=== PATIENT | female | born 1985 | race Caucasian/White ===

== ENCOUNTER 2024-08-16 20:10 | Inpatient (IN) | payer OTHER ==
[2024-08-16 21:55] VITALS: BMI 37.2
[2024-08-16] MEDS: ELECTROLYTE-148 SOLN 1,000 ML IV SCH (22:20)
[2024-08-16] MEDS ORDERED: OXYTOCIN 30 UNITS in 0.9% NS 30 UNIT/500 ML INFUS.BAG IVPB ONE (22:28)
[2024-08-16] MEDS: OXYTOCIN 30 UNITS in 0.9% NS 30 UNIT/500 ML INFUS.BAG IVPB SCH (22:30)
[2024-08-16 22:52] LABS: BASO % 0.9 % (0-2.0); EOS % 0.3 % (0-4.5); HEMATOCRIT 44.5 % (32.4-45.2); HEMOGLOBIN 14.5 GM/dL (10.7-15.3); LYMPH % 11.1 % (8-40); MCH 29.1 pg (25.7-33.7); MCHC 32.6 g/dl (32.0-36.0); MEAN CELL VOLUME 89.5 fl (80-96); MEAN PLT VOLUME 9.9 fl (7.5-11.1); MONO % 4.6 % (3.8-10.2); NEUT % 83.1 % (42.8-82.8); PLATELET COUNT 254 10^3/uL (134-434); RBC 4.98 M/mm3 (3.60-5.2); RDW 13.2 % (11.6-15.6); WHITE BLOOD COUNT 13.6 K/mm3 (4.0-10.0)
[2024-08-16 22:57] LABS: INR 0.88 (0.83-1.09); PROTHROMBIN TIME (PATIENT) 10.2 SEC (9.7-13.0)
[2024-08-16 23:00] LABS: ACTIVATED PTT 27.1 SECONDS (25.2-36.5)
[2024-08-16 23:09] LABS: POTASSIUM 3.7 mmol/L (3.5-5.1)
[2024-08-16 23:11] LABS: BLOOD UREA NITROGEN 6.2 mg/dL (7-18); CALCIUM 8.5 mg/dL (8.5-10.1)
[2024-08-16 23:15] LABS: CREATININE 0.6 mg/dL (0.55-1.3)
[2024-08-17 00:07] LABS: HIV INTERPRETATION NEGATIVE (NEGATIVE)
[2024-08-17] MEDS ORDERED: BUTORPHANOL TARTRATE 1 MG/ML VIAL ONE ×2 (01:22→03:20)
[2024-08-17] MEDS: BUTORPHANOL TARTRATE 1 MG/ML VIAL IVPB ONE ×2 (01:23→03:30)
[2024-08-17] MEDS: PROMETHAZINE HCL 25 MG/1 ML VIAL IVPB ONE ×2 (01:23→03:30)
[2024-08-17] MEDS ORDERED: PROMETHAZINE HCL 25 MG/1 ML VIAL ONE ×2 (01:23→03:20)
[2024-08-17] MEDS ORDERED: OXYTOCIN 20 UNITS in 0.9% NS 20 UNIT/1,000 ML INFUS.BAG IV ONE (05:23)
[2024-08-17] MEDS: OXYTOCIN 20 UNITS in 0.9% NS 20 UNIT/1,000 ML INFUS.BAG IV SCH (05:45)
[2024-08-17] MEDS ORDERED: IBUPROFEN 600 MG TABLET (FP) PO ONE (06:15)
[2024-08-17] MEDS: IBUPROFEN 600 MG TABLET (FP) PO PRN (06:20)
[2024-08-17] MEDS ORDERED: METHYLERGONOVINE MALEATE 0.2 MG/1 ML AMP IM PRN (06:35)
[2024-08-17] MEDS ORDERED: BISACODYL 10 MG SUPP.RECT RC PRN (06:35)
[2024-08-17] MEDS ORDERED: oxyCODONE HCL 5 MG TABLET PO PRN (06:35)
[2024-08-17] MEDS ORDERED: ACETAMINOPHEN 325 MG TABLET (FP) PO PRN (06:35)
[2024-08-17 07:26] VITALS: RESP 18
[2024-08-17] MEDS: WITCH HAZEL 50% (TUCKS) 40 PAD/JAR PAD TP PRN (09:46)
[2024-08-17] MEDS: BENZOCAINE 20% 57 GM BOTTLE TP PRN (09:47)
[2024-08-17] MEDS: BENZOCAINE 28 GM HEMORRHOIDAL OINTMENT TP PRN (09:47)
[2024-08-18 08:19] LABS: BASO % 0.4 % (0-2.0); EOS % 0.9 % (0-4.5); HEMATOCRIT 36.6 % (32.4-45.2); HEMOGLOBIN 12.2 GM/dL (10.7-15.3); LYMPH % 17.5 % (8-40); MCHC 33.3 g/dl (32.0-36.0); MEAN CELL VOLUME 90.1 fl (80-96); MEAN PLT VOLUME 9.3 fl (7.5-11.1); NEUT % 76.2 % (42.8-82.8); PLATELET COUNT 198 10^3/uL (134-434); RBC 4.06 M/mm3 (3.60-5.2); RDW 13.5 % (11.6-15.6); WHITE BLOOD COUNT 14.1 K/mm3 (4.0-10.0)
[2024-08-18 10:24] VITALS: TEMP 98
[2024-08-18 21:49] VITALS: BP 117/69; PULSE 90
[2024-08-18] MEDS ORDERED: SENNOSIDES/DOCUSATE COMBO (SENNA PLUS) TABLET (UD) PO PRN (22:00)
== END 2024-08-19 13:18 | disposition home or self-care (01) | DRG 560 ==
LOC: JDEL 20:10 → JLDR 21:25 → J3W 08-17 08:50
PROVIDERS: ADMIT Specialist; ATTEND Specialist
PROC: 10E0XZZ Delivery of Products of Conception, External Approach (ICD-10-PCS; principal; 2024-08-17)
PROC: 0HQ9XZZ Repair Perineum Skin, External Approach (ICD-10-PCS; 2024-08-17)
PROC: 0W8NXZZ Division of Female Perineum, External Approach (ICD-10-PCS; 2024-08-17)
DX: O42.92 Full-term premature rupture of membranes, unspecified as to length of time between rupture and onset of labor (principal); O70.0 First degree perineal laceration during delivery; Z3A.37 37 weeks gestation of pregnancy; Z37.0 Single live birth
CPT/HCPCS: 36415; 59025; 59409; 80048; 82962; 85025; 85610; 85730; 86850; 86900; 86901; 87389